=== PATIENT | male | born 1960 | race Caucasian/White ===

== ENCOUNTER → 2018-07-13 | Day surgery (SDC) | payer OTHER ==
[~2018-07-13] MED LIST: Lactated Ringers 1,000 ML IV SCH; Midazolam 1 MG/ML 2 ML SDV IV ONE; fentaNYL 100 MCG/2 ML SDV IV ONE
--- NOTE | 2018-07-13 11:39 | OR ---
DATE OF OPERATION: 07/13/2018 PREOPERATIVE DIAGNOSIS: PERIANAL ITCHING AND NEED FOR SCREENING COLONOSCOPY. POSTOPERATIVE DIAGNOSIS: PERIANAL ITCHING AND NEED FOR SCREENING COLONOSCOPY. SURGEON: Buzz Treadwell MD PROCEDURE: TOTAL COLONOSCOPY WITH PHOTOS. ANESTHESIA: Conscious sedation with IV Versed and fentanyl. SPECIMEN: None. FINDINGS: Some scattered sigmoid diverticula, otherwise normal. The patient has no masses, polyps, bleeding sites, colitis, or evidence of hemorrhoids. I do not find a specific etiology for his perianal itching. INDICATIONS: This 58-year-old male has symptomatic perianal itching with no obvious external cause. He has not had a colonoscopy at least in the last 12 years. He does have some occasional bleeding with bowel function. DESCRIPTION OF PROCEDURE: After adequate preparation, a colonoscope was inserted into the rectum. This was easily passed all the way to the cecum. The bowel prep was very good. On withdrawal, photograph of the cecum was taken. I could also confirm cecal placement by palpation in the right lower quadrant. On withdrawal of the scope, the only abnormalities noted were some diverticula, mostly confined to the sigmoid area. In the rectal area, the scope was retroflexed and there was no evidence really of any internal hemorrhoids either. No masses were there and nothing to explain any leaking through the anal sphincter that would cause his pruritis. Recommendation would be for a followup screening colonoscopy for polyps in 10 years. Air was suctioned from the colon and the scope removed. NAYLA/EDEL /[id number]
== END ==
LOC: CC.SDS 06:48
PROVIDERS: ATTEND Surgery
DX: K57.31 Diverticulosis of large intestine without perforation or abscess with bleeding (principal); L29.0 Pruritus ani; M19.90 Unspecified osteoarthritis, unspecified site; N40.0 Benign prostatic hyperplasia without lower urinary tract symptoms; N52.9 Male erectile dysfunction, unspecified; E78.5 Hyperlipidemia, unspecified; Z79.82 Long term (current) use of aspirin; Z79.899 Other long term (current) drug therapy
CPT/HCPCS: G0121; J2250; J3010; J7120

== ENCOUNTER 2019-03-08 18:14 | Emergency (ER) | payer OTHER ==
[2019-03-08] MEDS ORDERED: Acetaminophen/HYDROcodone 325-5 MG Tab PO ONE (18:15)
[2019-03-08] MEDS ORDERED: Take Home: Acetaminophen/HYDROcodone 325-5 MG, 2 Tab Pack PO ONE (19:02)
--- NOTE | 2019-03-08 19:07 | EDM.PDOC ---
ED HPI GENERAL MEDICAL PROBLEM - General Chief Complaint: Lower Extremity Injury/Pain Stated Complaint: "My knee keep giving out" Time Seen by Provider: 03/08/19 18:25 Source of Information: Reports: Patient History Limitations: Reports: No Limitations - History of Present Illness INITIAL COMMENTS - FREE TEXT/NARRATIVE: Patient presents to ER with complaints of bilateral knee pain. States earlier today around 3 pm, was stepping in to his fish house and fell landing directly on his right knee. Did dislocate his knee cap and after 30 minutes, was able to reduce it. States tried to walk around for a bit and his knee kept buckling on him. Was able to limp around on his leg as he wasn't having much pain but felt very weak and wouldn't support his weight. As he got home, right leg buckled again on him and he fell landing directly on his left knee. Now he states, he can't stand as his legs won't support him and continue to buckle. Has no pain at rest. Does have pain with movement but mostly finds it difficult to even raise or straighten his knees. Has noted a considerable amount of swelling to the left knee. Relates has been told "he has bad knees prior to this" and has had his right buckle a time or 2 before but has not experienced anything like this. Onset: Today, Sudden Duration: Hour(s): Location: Reports: Lower Extremity, Left, Lower Extremity, Right Improves with: Reports: Rest Worsens with: Reports: Movement Context: Reports: Trauma Associated Symptoms: Reports: No Other Symptoms - Related Data Allergies Allergy/AdvReac Type Severity Reaction Status Date / Time No Known Allergies Allergy Verified 03/08/19 18:23 Home Meds: Home Meds Acyclovir 400 mg PO DAILY 07/12/18 [History] Aspirin [Halfprin] 81 mg PO DAILY 07/12/18 [History] Cholecalciferol (Vitamin D3) [Vitamin D3] 2,000 unit PO DAILY 07/12/18 [History] Hydrocortisone [Proctozone-HC 2.5% Crm] 1 applic TOP BID PRN 07/12/18 [History] Sildenafil Citrate [Sildenafil] 50 - 100 mg PO ASDIRECTED 07/12/18 [History] Simvastatin 10 mg PO DAILY 07/12/18 [History] Vitamin B Complex 1 tab PO DAILY 07/12/18 [History] Vitamin E 400 unit PO DAILY 07/12/18 [History] Past Medical History Cardiovascular History: Reports: High Cholesterol, Hypertension Other Musculoskeletal History: c/o Bilateral knee pain Other Neuro History: Brain surgery in 2001 Social & Family History - Tobacco Use Smoking Status *Q: Never Smoker Second Hand Smoke Exposure: No - Recreational Drug Use Recreational Drug Use: No Review of Systems - Review of Systems Review Of Systems: See Below Musculoskeletal: Reports: Leg Pain, Joint Pain, Joint Swelling. Denies: Neck Pain, Shoulder Pain, Arm Pain, Back Pain Skin: Reports: No Symptoms Neurological: Reports: Weakness ED EXAM, GENERAL - Physical Exam Exam: See Below Exam Limited By: No Limitations General Appearance: Alert, WD/WN, No Apparent Distress Respiratory/Chest: No Respiratory Distress, Lungs Clear, Normal Breath Sounds Cardiovascular: Regular Rate, Rhythm Extremities: Joint Swelling, Leg Pain, Limited Range of Motion, Other (patient has pain with flexion and extension of his bilateral knees. Unable to raise or straighten his legs without assist of his arms. Had much difficulty with standing and bearing his full weight on either leg. Moderate amount of swelling to the patellar region of his left knee. Right knee has mild amount. No obvious laxity noted with varus and valgus maneuvers. ) Neurological: Alert, Oriented Course - Vital Signs Last Recorded V/S: Last Vital Signs Temp 98.6 F 03/08/19 18:15 Pulse 92 03/08/19 18:15 Resp 20 03/08/19 18:15 BP 131/80 03/08/19 18:15 Pulse Ox 100 03/08/19 18:15 - Orders/Labs/Meds Orders: Active Orders 24 hr Category Date Time Status Knee 3V Lt [CR] Stat Exams 03/08/19 18:23 Ordered Knee 3V Rt [CR] Stat Exams 03/08/19 18:23 Ordered Meds: Medications Discontinued Medications Generic Name Dose Route Start Last Admin Trade Name Freq PRN Reason Stop Dose Admin Hydrocodone Bitart/Acetaminophen 2 packet 03/08/19 19:02 Take Home: Acetaminophen/Hydrocod, 2 Tab Pack PO 03/08/19 19:03 ONETIME ONE - Re-Assessments/Exams Free Text/Narrative Re-Assessment/Exam: 03/08/19 Xrays negative of knees for any acute changes. Departure - Departure Time of Disposition: 19:03 Disposition: Home, Self-Care 01 Condition: Fair Clinical Impression: Traumatic dislocation of knee joint, Bilateral knee pain - Discharge Information *PRESCRIPTION DRUG MONITORING PROGRAM REVIEWED*: Not Applicable *COPY OF PRESCRIPTION DRUG MONITORING REPORT IN PATIENT [place]: Not Applicable Forms: ED Department Discharge Additional Instructions: 1. Rest 2. Elevate legs on pillows tonight. 3. Ice frequently 4. Keep immobilizers on 5. Return tomorrow for MRI of bilateral knees Sepsis Event Note - Evaluation Sepsis Screening Result: No Definite Risk - Focused Exam Vital Signs: Vital Signs Temp Pulse Resp BP Pulse Ox 03/08/19 18:15 98.6 F 92 20 131/80 100 Date Exam was Performed: 03/08/19 Time Exam was Performed: 19:18 - My Orders Last 24 Hours: My Active Orders 03/08/19 18:23 Knee 3V Lt [CR] Stat Knee 3V Rt [CR] Stat - Assessment/Plan Last 24 Hours: My Active Orders 03/08/19 18:23 Knee 3V Lt [CR] Stat Knee 3V Rt [CR] Stat
== END 2019-03-08 19:20 | disposition home or self-care (01) ==
LOC: CC.ED 18:14
DX: S83.104A Unspecified dislocation of right knee, initial encounter (principal); S83.105A Unspecified dislocation of left knee, initial encounter; I10 Essential (primary) hypertension; Z79.899 Other long term (current) drug therapy; Z79.82 Long term (current) use of aspirin; W19.XXXA Unspecified fall, initial encounter
CPT/HCPCS: 73562-LT; 73562-RT; 99283-25; A9270-GY

== ENCOUNTER 2019-03-21 10:52 | Inpatient (IN) | payer OTHER ==
[2019-03-21] MEDS ORDERED: hydrOXYzine HCl 25 MG Tab PO PRN (14:20)
[2019-03-21] MEDS ORDERED: oxyCODONE 5 MG Tab PO PRN (14:20)
[2019-03-21] MEDS ORDERED: Hydrocortisone 2.5% Crm 30 GM Tube TOP PRN (19:03)
[2019-03-21] MEDS: Vitamin B Complex Cap PO SCH (20:16)
[2019-03-21] MEDS: Cholecalciferol (Vitamin D3) 25 MCG Tab PO SCH (20:16)
[2019-03-21] MEDS: Vitamin E (dl-alpha-tocopherol acetate) 400 Unit Cap PO SCH (20:16)
[2019-03-21] MEDS: Aspirin 325 MG Tab PO SCH (20:17)
--- NOTE | 2019-03-21 20:44 | PCM.HP.2 ---
H&P History of Present Illness - General Date of Service: 03/21/19 Admit Problem/Dx: Admission Diagnosis/Problem Admission Diagnosis/Problem Rupture of quadriceps tendon Source of Information: Patient History Limitations: Reports: No Limitations - History of Present Illness Initial Comments - Free Text/Narative: Patient presented for admission today for physical therapy/pain control following a quadricep tendon rupture repair. Patient had fallen and within 3 hours had fallen x2 and ruptured bilateral quadricep tendons. Had surgery on Tuesday of this week. Will require 6-8 weeks of extension in immobilizers, no weight bearing at this time. Is using oxycodone for pain control. Has not yet had a bowel movement since prior to surgery. Is currently taking Miralax and Senna. Duration of Symptoms: Reports: Day(s): Location: Reports: Lower Extremity, Left Quality: Reports: Sharp Severity: Moderate Improves with: Reports: Medication Worsens with: Reports: Movement Context: Reports: Trauma Associated Symptoms: Reports: No Other Symptoms Bilateral Knee Pain Score (Numeric/FACES): 2 - Related Data Allergies/Adverse Reactions: Allergies Allergy/AdvReac Type Severity Reaction Status Date / Time No Known Allergies Allergy Verified 03/21/19 14:15 Home Medications: Home Meds Acyclovir 400 mg PO DAILY 07/12/18 [History] Cholecalciferol (Vitamin D3) [Vitamin D3] 2,000 unit PO BEDTIME 07/12/18 [ History] Hydrocortisone [Proctozone-HC 2.5% Crm] 1 applic TOP BID PRN 07/12/18 [History] Sildenafil Citrate [Sildenafil] 50 - 100 mg PO ASDIRECTED 07/12/18 [History] Simvastatin 10 mg PO DAILY 07/12/18 [History] Vitamin B Complex 1 tab PO BEDTIME 07/12/18 [History] Vitamin E 400 unit PO BEDTIME 07/12/18 [History] Aspirin 325 mg PO BID 03/21/19 [History] Past Medical History Cardiovascular History: Reports: High Cholesterol, Hypertension Musculoskeletal History: Reports: Other (See Below) Other Musculoskeletal History: c/o Bilateral knee pain Other Neuro History: Brain surgery in 2001 - Past Surgical History Musculoskeletal Surgical History: Reports: Other (See Below) Other Musculoskeletal Surgeries/Procedures:: bilateral open repair of quadriceps tendons Social & Family History - Tobacco Use Smoking Status *Q: Never Smoker - Caffeine Use Caffeine Use: Reports: Coffee - Recreational Drug Use Recreational Drug Use: No H&P Review of Systems - Review of Systems: Review Of Systems: See Below General: Denies: Fever, Chills, Malaise, Weakness HEENT: Reports: No Symptoms Pulmonary: Denies: Shortness of Breath, Cough Cardiovascular: Denies: Chest Pain, Edema, Lightheadedness Gastrointestinal: Reports: Constipation. Denies: Abdominal Pain, Nausea, Vomiting Genitourinary: Reports: No Symptoms Musculoskeletal: Reports: Leg Pain Skin: Reports: Other (incisions to bilateral knees) Psychiatric: Reports: No Symptoms Neurological: Reports: No Symptoms Exam - Exam Exam: See Below - Vital Signs Vital Signs: Last Vital Signs Temp 99.2 F 03/21/19 17:30 Pulse 83 03/21/19 17:30 Resp 18 03/21/19 17:30 BP 129/81 03/21/19 17:30 Pulse Ox 100 03/21/19 17:30 Weight: 245 lb 12.8 oz - Exam General: Alert, Oriented HEENT: Conjunctiva Clear, Mucosa Moist & [place], Posterior Pharynx Clear Neck: Supple Lungs: Clear to Auscultation, Normal Respiratory Effort Cardiovascular: Regular Rate, Regular Rhythm GI/Abdominal Exam: Normal Bowel Sounds, Soft, Non-Tender Extremities: Normal Inspection Skin: Warm, Dry, Other (bandages intact to bilateral knees) Sepsis Event Note - Evaluation Sepsis Screening Result: No Definite Risk - Focused Exam Vital Signs: Vital Signs Temp Pulse Resp BP Pulse Ox 03/21/19 17:30 99.2 F 83 18 129/81 100 Date Exam was Performed: 03/21/19 Time Exam was Performed: 20:39 - Problem List (1) Quadriceps tendon rupture SNOMED Code(s): 5847700 ICD Code: S76.119A - STRAIN OF UNSP QUADRICEPS MUSCLE, FASCIA AND TENDON, INIT Status: Acute Current Visit: Yes Qualifiers: Encounter type: initial encounter Laterality: right Qualified Code(s): S76.111A - Strain of right quadriceps muscle, fascia and tendon, initial encounter (2) Bilateral knee pain SNOMED Code(s): 67762360 ICD Code: M25.561 - PAIN IN RIGHT KNEE; M25.562 - PAIN IN LEFT KNEE Status : Acute Priority: High Current Visit: Yes (3) Quadriceps tendon rupture SNOMED Code(s): 8531965 ICD Code: S76.119A - STRAIN OF UNSP QUADRICEPS MUSCLE, FASCIA AND TENDON, INIT Status: Acute Priority: High Current Visit: Yes Qualifiers: Encounter type: initial encounter Laterality: left Qualified Code(s): S76.112A - Strain of left quadriceps muscle, fascia and tendon, initial encounter Problem List Initiated/Reviewed/Updated: Yes Orders Last 24hrs: Active Orders 24 hr Category Date Time Status Patient Status [ADT] Routine ADT 03/21/19 14:20 Active Communication Order [RC] ONETIME Care 03/28/19 08:00 Active Cooling Warming Measures [RC] .PRN Care 03/21/19 18:29 Active Oxygen Therapy [RC] .PRN Care 03/21/19 14:20 Active Up With Assistance [RC] .PRN Care 03/21/19 14:20 Active Vital Signs [RC] 0800,2000 Care 03/21/19 14:20 Active Wound Care [RC] DAILY Care 03/22/19 08:00 Active Regular Diet [DIET] Diet 03/21/19 Dinner Active Acetaminophen [Tylenol] Med 03/21/19 14:20 Active 650 mg PO Q4H PRN Acyclovir [Zovirax] Med 03/22/19 08:00 Active 400 mg PO DAILY Aspirin Med 03/21/19 20:00 Active 325 mg PO BID Cholecalciferol (Vitamin D3) [Vitamin D3] Med 03/21/19 20:00 Active 50 mcg PO BEDTIME Docusate Sodium/Sennosides [Senna Plus] Med 03/21/19 20:00 Active 1 tab PO BID Hydrocortisone [Hydrocortisone 2.5% Crm] Med 03/21/19 19:03 Active 0 gm TOP BID PRN Polyethylene Glycol 3350 [MiraLAX] Med 03/22/19 08:00 Active 17 gm PO DAILY Simvastatin [Zocor] Med 03/22/19 08:00 Active 10 mg PO DAILY Vitamin B Complex Med 03/21/19 20:00 Active 1 each PO BEDTIME Vitamin E (dl, acetate) [Vitamin E] Med 03/21/19 20:00 Active 400 units PO BEDTIME hydrOXYzine HCL [Atarax] Med 03/21/19 14:20 Active 25 mg PO Q4H PRN oxyCODONE Med 03/21/19 14:20 Active 5 - 10 mg PO Q4H PRN Ice Pack [Ice Therapy] [OM.PC] Routine Oth 03/21/19 18:29 Ordered Resuscitation Status Routine Resus Stat 03/21/19 14:20 Ordered Medication Orders Acetaminophen (Tylenol) 650 mg PO Q4H PRN PRN Reason: Pain Acyclovir (Zovirax) 400 mg PO DAILY [facility] Aspirin (Aspirin) 325 mg PO BID [facility] Last Admin: 03/21/19 20:17 Dose: 325 mg Cholecalciferol (Vitamin D3) 50 mcg PO BEDTIME [facility] Last Admin: 03/21/19 20:16 Dose: 50 mcg Hydrocortisone (Hydrocortisone 2.5% Crm) 0 gm TOP BID PRN PRN Reason: Hemorrhoids Hydroxyzine HCl (Atarax) 25 mg PO Q4H PRN PRN Reason: Pain Oxycodone HCl (Oxycodone) 5 - 10 mg PO Q4H PRN PRN Reason: Pain Polyethylene Glycol (Miralax) 17 gm PO DAILY [facility] Senna/Docusate Sodium (Senna Plus) 1 tab PO BID [facility] Last Admin: 03/21/19 20:16 Dose: 1 tab Simvastatin (Zocor) 10 mg PO DAILY [facility] Vitamin B Complex (Vitamin B Complex) 1 each PO BEDTIME [facility] Last Admin: 03/21/19 20:16 Dose: 1 each Vitamin E (Vitamin E) 400 units PO BEDTIME [facility] Last Admin: 03/21/19 20:16 Dose: 400 units Assessment/Plan Comment:: Bilateral quadricep tendon rupture repair Continue pain control. Physical therapy. Assistance with adaptations for home. - Mortality Measure Prognosis:: Good
[2019-03-21] MEDS: Acetaminophen 325 MG Tab PO PRN (21:26)
[2019-03-22] MEDS ORDERED: Simvastatin 10 MG Tab PO SCH (08:00)
[2019-03-22] MEDS: Aspirin 325 MG Tab PO SCH ×2 (08:04→19:07)
[2019-03-22] MEDS: Polyethylene Glycol 3350 Powder 17 GM Packet PO SCH (08:05)
[2019-03-22] MEDS: Acyclovir 200 MG Cap PO SCH (08:05)
[2019-03-22] MEDS: Acetaminophen 325 MG Tab PO PRN (19:07)
[2019-03-22] MEDS: Cholecalciferol (Vitamin D3) 25 MCG Tab PO SCH (19:07)
[2019-03-22] MEDS: Vitamin B Complex Cap PO SCH (19:08)
[2019-03-22] MEDS: Vitamin E (dl-alpha-tocopherol acetate) 400 Unit Cap PO SCH (19:08)
[2019-03-23] MEDS: Aspirin 325 MG Tab PO SCH ×2 (08:18→20:03)
[2019-03-23] MEDS: Acyclovir 200 MG Cap PO SCH (08:18)
[2019-03-23] MEDS: Polyethylene Glycol 3350 Powder 17 GM Packet PO SCH (08:20)
[2019-03-23] MEDS ORDERED: Polyethylene Glycol 3350 Powder 17 GM Packet PO PRN (15:55)
[2019-03-23] MEDS: Vitamin E (dl-alpha-tocopherol acetate) 400 Unit Cap PO SCH (20:03)
[2019-03-23] MEDS: Vitamin B Complex Cap PO SCH (20:03)
[2019-03-23] MEDS: Cholecalciferol (Vitamin D3) 25 MCG Tab PO SCH (20:04)
[2019-03-23] MEDS: Simvastatin 10 MG Tab PO SCH (20:04)
[2019-03-23] MEDS: Acetaminophen 325 MG Tab PO PRN (21:56)
[2019-03-23] MEDS: diphenhydrAMINE 25 MG Cap PO PRN (21:57)
[2019-03-24] MEDS: Aspirin 325 MG Tab PO SCH ×2 (08:26→20:16)
[2019-03-24] MEDS: Acyclovir 200 MG Cap PO SCH (08:26)
[2019-03-24] MEDS ORDERED: Acyclovir 200 MG Cap ONE (08:40)
[2019-03-24] MEDS: Cholecalciferol (Vitamin D3) 25 MCG Tab PO SCH (20:00)
[2019-03-24] MEDS: Vitamin E (dl-alpha-tocopherol acetate) 400 Unit Cap PO SCH (20:16)
[2019-03-24] MEDS: Simvastatin 10 MG Tab PO SCH (20:16)
[2019-03-24] MEDS: Vitamin B Complex Cap PO SCH (20:17)
[2019-03-24] MEDS: Acetaminophen 325 MG Tab PO PRN (20:22)
[2019-03-24] MEDS: diphenhydrAMINE 25 MG Cap PO PRN (20:23)
[2019-03-25] MEDS: Aspirin 325 MG Tab PO SCH ×2 (08:14→20:22)
[2019-03-25] MEDS: Acyclovir 200 MG Cap PO SCH (08:14)
[2019-03-25] MEDS: Vitamin B Complex Cap PO SCH (20:22)
[2019-03-25] MEDS: Vitamin E (dl-alpha-tocopherol acetate) 400 Unit Cap PO SCH (20:22)
[2019-03-25] MEDS: Simvastatin 10 MG Tab PO SCH (20:22)
[2019-03-25] MEDS: Cholecalciferol (Vitamin D3) 25 MCG Tab PO SCH (20:22)
[2019-03-25] MEDS: Acetaminophen 325 MG Tab PO PRN (22:03)
[2019-03-25] MEDS: diphenhydrAMINE 25 MG Cap PO PRN (22:03)
[2019-03-26] MEDS: Aspirin 325 MG Tab PO SCH ×2 (07:54→20:26)
[2019-03-26] MEDS: Acyclovir 200 MG Cap PO SCH (07:54)
[2019-03-26] MEDS: Cholecalciferol (Vitamin D3) 25 MCG Tab PO SCH (20:26)
[2019-03-26] MEDS: Vitamin B Complex Cap PO SCH (20:26)
[2019-03-26] MEDS: Vitamin E (dl-alpha-tocopherol acetate) 400 Unit Cap PO SCH (20:26)
[2019-03-26] MEDS: Simvastatin 10 MG Tab PO SCH (20:26)
[2019-03-26] MEDS: Acetaminophen 325 MG Tab PO PRN (22:13)
[2019-03-26] MEDS: diphenhydrAMINE 25 MG Cap PO PRN (22:13)
[2019-03-27] MEDS: Aspirin 325 MG Tab PO SCH ×2 (08:09→19:28)
[2019-03-27] MEDS: Acyclovir 200 MG Cap PO SCH (08:09)
[2019-03-27] MEDS: Vitamin E (dl-alpha-tocopherol acetate) 400 Unit Cap PO SCH (19:28)
[2019-03-27] MEDS: Cholecalciferol (Vitamin D3) 25 MCG Tab PO SCH (19:28)
[2019-03-27] MEDS: Vitamin B Complex Cap PO SCH (19:28)
[2019-03-27] MEDS: Simvastatin 10 MG Tab PO SCH (19:28)
[2019-03-28] MEDS: Acyclovir 200 MG Cap PO SCH (08:15)
[2019-03-28] MEDS: Aspirin 325 MG Tab PO SCH ×2 (08:15→20:16)
[2019-03-28] MEDS: Vitamin B Complex Cap PO SCH (20:15)
[2019-03-28] MEDS: Cholecalciferol (Vitamin D3) 25 MCG Tab PO SCH (20:15)
[2019-03-28] MEDS: Vitamin E (dl-alpha-tocopherol acetate) 400 Unit Cap PO SCH (20:16)
[2019-03-28] MEDS: Simvastatin 10 MG Tab PO SCH (20:16)
[2019-03-28] MEDS: Acetaminophen 325 MG Tab PO PRN (20:20)
[2019-03-28] MEDS: diphenhydrAMINE 25 MG Cap PO PRN (20:20)
[2019-03-29] MEDS: Acyclovir 200 MG Cap PO SCH (07:47)
[2019-03-29] MEDS: Aspirin 325 MG Tab PO SCH ×2 (07:47→19:14)
[2019-03-29] MEDS: Vitamin E (dl-alpha-tocopherol acetate) 400 Unit Cap PO SCH (19:14)
[2019-03-29] MEDS: Vitamin B Complex Cap PO SCH (19:14)
[2019-03-29] MEDS: diphenhydrAMINE 25 MG Cap PO PRN (19:15)
[2019-03-29] MEDS: Simvastatin 10 MG Tab PO SCH (19:15)
[2019-03-29] MEDS: Cholecalciferol (Vitamin D3) 25 MCG Tab PO SCH (19:15)
[2019-03-29] MEDS: Acetaminophen 325 MG Tab PO PRN (19:16)
[2019-03-30] MEDS: Acyclovir 200 MG Cap PO SCH (08:06)
[2019-03-30] MEDS: Aspirin 325 MG Tab PO SCH ×2 (08:06→19:07)
[2019-03-30] MEDS: Simvastatin 10 MG Tab PO SCH (19:06)
[2019-03-30] MEDS: Cholecalciferol (Vitamin D3) 25 MCG Tab PO SCH (19:06)
[2019-03-30] MEDS: Vitamin B Complex Cap PO SCH (19:07)
[2019-03-30] MEDS: Vitamin E (dl-alpha-tocopherol acetate) 400 Unit Cap PO SCH (19:07)
[2019-03-30] MEDS: diphenhydrAMINE 25 MG Cap PO PRN (19:32)
[2019-03-30] MEDS: Acetaminophen 325 MG Tab PO PRN (19:32)
[2019-03-31] MEDS: Acyclovir 200 MG Cap PO SCH (08:04)
[2019-03-31] MEDS: Aspirin 325 MG Tab PO SCH ×2 (08:04→19:34)
[2019-03-31] MEDS: Vitamin B Complex Cap PO SCH (19:33)
[2019-03-31] MEDS: Vitamin E (dl-alpha-tocopherol acetate) 400 Unit Cap PO SCH (19:33)
[2019-03-31] MEDS: Cholecalciferol (Vitamin D3) 25 MCG Tab PO SCH (19:34)
[2019-03-31] MEDS: Simvastatin 10 MG Tab PO SCH (19:34)
[2019-03-31] MEDS: diphenhydrAMINE 25 MG Cap PO PRN (19:37)
[2019-03-31] MEDS: Acetaminophen 325 MG Tab PO PRN (19:37)
[2019-04-01] MEDS: Acyclovir 200 MG Cap PO SCH (07:19)
[2019-04-01] MEDS: Aspirin 325 MG Tab PO SCH ×2 (07:20→19:47)
[2019-04-01] MEDS: Cholecalciferol (Vitamin D3) 25 MCG Tab PO SCH (19:47)
[2019-04-01] MEDS: Vitamin E (dl-alpha-tocopherol acetate) 400 Unit Cap PO SCH (19:47)
[2019-04-01] MEDS: Vitamin B Complex Cap PO SCH (19:47)
[2019-04-01] MEDS: Simvastatin 10 MG Tab PO SCH (19:47)
[2019-04-01] MEDS: Acetaminophen 325 MG Tab PO PRN (19:48)
[2019-04-01] MEDS: diphenhydrAMINE 25 MG Cap PO PRN (19:48)
[2019-04-02] MEDS: Acyclovir 200 MG Cap PO SCH (07:58)
[2019-04-02] MEDS: Aspirin 325 MG Tab PO SCH ×2 (07:58→20:26)
[2019-04-02] MEDS ORDERED: QUEtiapine 100 MG Tab PO SCH (20:00)
[2019-04-02] MEDS: Simvastatin 10 MG Tab PO SCH (20:26)
[2019-04-02] MEDS: Vitamin B Complex Cap PO SCH (20:26)
[2019-04-02] MEDS: Vitamin E (dl-alpha-tocopherol acetate) 400 Unit Cap PO SCH (20:26)
[2019-04-02] MEDS: Acetaminophen 325 MG Tab PO PRN (20:26)
[2019-04-02] MEDS: Cholecalciferol (Vitamin D3) 25 MCG Tab PO SCH (20:26)
[2019-04-02] MEDS: diphenhydrAMINE 25 MG Cap PO PRN (20:27)
[2019-04-03] MEDS: Acyclovir 200 MG Cap PO SCH (08:08)
[2019-04-03] MEDS: Aspirin 325 MG Tab PO SCH ×2 (08:08→21:18)
[2019-04-03] MEDS: Simvastatin 10 MG Tab PO SCH (21:18)
[2019-04-03] MEDS: Vitamin B Complex Cap PO SCH (21:18)
[2019-04-03] MEDS: Cholecalciferol (Vitamin D3) 25 MCG Tab PO SCH (21:18)
[2019-04-03] MEDS: Vitamin E (dl-alpha-tocopherol acetate) 400 Unit Cap PO SCH (21:18)
[2019-04-03] MEDS: Acetaminophen 325 MG Tab PO PRN (21:19)
[2019-04-03] MEDS: diphenhydrAMINE 25 MG Cap PO PRN (21:19)
[2019-04-04] MEDS: Acyclovir 200 MG Cap PO SCH (08:20)
[2019-04-04] MEDS: Aspirin 325 MG Tab PO SCH ×2 (08:21→19:51)
[2019-04-04] MEDS: Vitamin B Complex Cap PO SCH (19:51)
[2019-04-04] MEDS: Cholecalciferol (Vitamin D3) 25 MCG Tab PO SCH (19:51)
[2019-04-04] MEDS: Simvastatin 10 MG Tab PO SCH (19:52)
[2019-04-04] MEDS: Vitamin E (dl-alpha-tocopherol acetate) 400 Unit Cap PO SCH (19:52)
[2019-04-05] MEDS: Aspirin 325 MG Tab PO SCH ×2 (07:55→19:46)
[2019-04-05] MEDS: Acyclovir 200 MG Cap PO SCH (07:55)
[2019-04-05] MEDS: Vitamin B Complex Cap PO SCH (19:46)
[2019-04-05] MEDS: Cholecalciferol (Vitamin D3) 25 MCG Tab PO SCH (19:47)
[2019-04-05] MEDS: Vitamin E (dl-alpha-tocopherol acetate) 400 Unit Cap PO SCH (19:47)
[2019-04-05] MEDS: Simvastatin 10 MG Tab PO SCH (19:47)
[2019-04-06] MEDS: Aspirin 325 MG Tab PO SCH (07:34)
[2019-04-06] MEDS: Acyclovir 200 MG Cap PO SCH (07:34)
--- NOTE | 2019-04-09 08:17 | DISCH ---
ADMISSION DIAGNOSES: 1. Status post bilateral quadriceps tendon repair. 2. Hyperlipidemia. DISCHARGE DIAGNOSIS: 1. STATUS POST BILATERAL QUADRICEPS TENDON REPAIR. 2. HYPERLIPIDEMIA. HISTORY: Brief history: The patient is a 58-year-old, otherwise healthy male, who suffered a separate incidence on the same day of quadriceps tendons rupture. He underwent repair with orthopedist and came to our facility for inability to care for himself and swing bed placement. HOSPITAL COURSE: The patient was stable while here. He required no significant pain medication. Physical Therapy worked with him just for some upper extremity range of motion and hip flexion, but he is still nonweightbearing and not able to use his knees at this point. He really did not have any significant concerns during his hospital stay. Home health has been arranged for him to use, and we have arranged for bed and his family has arranged for him to have arrangement at home to be able to help him. He will have a care provider for dressing and bathroom needs, etc. He will be sent home with p.r.n. pain pill to use as needed. Otherwise, no other changes during the stay. He is following up with orthopedist in the next month, and I believe he will be able to start some lower extremity physical therapy at that time. COMPLICATIONS: During his stay were none. CONSULTATIONS: PT. DISPOSITION: Discharged home with home health for medication monitoring, PT, OT, and self-cares. YI /[id number]
== END 2019-04-06 13:38 | disposition home health service (06) | DRG 561 ==
LOC: CC.MS 17:14
PROVIDERS: ADMIT Family Medicine; ATTEND Family Medicine
DX: Z47.89 Encounter for other orthopedic aftercare (principal); S76.111D Strain of right quadriceps muscle, fascia and tendon, subsequent encounter; S76.112D Strain of left quadriceps muscle, fascia and tendon, subsequent encounter; W19.XXXD Unspecified fall, subsequent encounter; E78.5 Hyperlipidemia, unspecified; E78.00 Pure hypercholesterolemia, unspecified; I10 Essential (primary) hypertension; M25.561 Pain in right knee; M25.562 Pain in left knee; Z79.899 Other long term (current) drug therapy; Z98.890 Other specified postprocedural states; Z79.82 Long term (current) use of aspirin
CPT/HCPCS: 97110-GP; 97140-GP; 97161-GP; 97530-GP; A9270-GY